=== PATIENT | male | born 1995 | race Caucasian/White ===

== ENCOUNTER 2020-10-13 22:06 | Emergency (ER) | payer BC, OTHER ==
[~2020-10-13] VITALS: Ht 175.3 cm; Wt 83.9 kg
[2020-10-13 22:46] LABS: ABSOLUTE EOSINOPHILS 0.1 thou/uL (0.0-0.7); ABSOLUTE LYMPHOCYTES 2.7 thou/uL (0.8-5.3); ABSOLUTE NEUTROPHILS 9.5 thou/uL (1.6-8.1); BASOPHILS 0.4 %; EOSINOPHILS 0.8 %; HEMATOCRIT 43.6 % (42.0-52.0); HEMOGLOBIN 15.1 gm/dL (14.0-18.0); LYMPHOCYTES 20.5 %; MCH 29.4 pg (26.0-34.0); MCHC 34.7 g/dL (28.0-37.0); MCV 84.9 fL (80.0-100.0); MONOCYTES 7.5 %; MPV 7.5 fl. (7.2-11.1); NUCLEATED RBCS 0 /100WBC; PLATELET COUNT* 338 thou/uL (150-400); POLYS 70.8 %; RBC 5.14 mil/uL (4.50-6.00); RDW-CV 13.1 % (10.5-14.5); WBC 13.4 thou/uL (4.0-11.0)
[2020-10-13 22:47] LABS: URINE BILIRUBIN NEGATIVE (Negative); URINE BLOOD NEGATIVE (Negative); URINE CLARITY CLEAR; URINE COLOR YELLOW; URINE GLUCOSE-RANDOM NEGATIVE (Negative); URINE KETONES TRACE (Negative); URINE LEUKOCYTES-REFLEX NEGATIVE (Negative); URINE NITRITE-REFLEX NEGATIVE (Negative); URINE PROTEIN TRACE (Negative); URINE SPECIFIC GRAVITY 1.025 (1.005-1.030)
[2020-10-13 22:50] LABS: CREATININE 1.2 mg/dL (0.6-1.3); POTASSIUM 3.2 mmol/L (3.5-5.1)
[2020-10-13 22:54] LABS: ALBUMIN 4.3 g/dL (3.4-5.0); AMP/METHAMP Negative (Negative); BARBITURATES Negative (Negative); BENZODIAZEPINES Negative (Negative); COCAINE Negative (Negative); METHADONE Negative (Negative); OPIATES Negative (Negative); PCP Negative (Negative); THC POSITIVE (Negative); TOTAL BILIRUBIN 1.2 mg/dL (<0.1-1.0); TOTAL PROTEIN 7.4 g/dL (6.4-8.2)
[2020-10-14] MEDS ORDERED: ZOFRAN ODT4 MG PO (01:10)
[2020-10-14 01:29] VITALS: BP 110/52
--- NOTE | 2020-10-14 10:08 | EKG ---
[place] [address] ELECTROCARDIOGRAM REPORT Name: HARSHAD VANCE Room: [facility]#: [id number] Admission: 10/13/20 Attend Phys: Discharge: 10/14/20 Date of : [birth year] Date of Service: 10/13/202233 Report #: [id number] THIS REPORT FOR: //name// [facility] ED Test Date: 2020-10-13 Test Time: 22:34:15 Pat Name: HARSHAD VANCE Department: Room: Gender: Hybrid Tester: [facility] : 1995 Requested By: Juliet Condon Order Number: [id number] MD: George Rhoades Measurements Intervals [place] Rate: 106 P: 60 [place]: 154 QRS: 45 QRSD: 81 T: -13 QT: 326 QTc: 433 Interpretive Statements Sinus tachycardia Borderline T wave abnormalities No previous ECG available for comparison Electronically Signed On 10-14-2020 10:08:43 [employer] by George Rhoades [email or web address] <ELECTRONICALLY SIGNED> By: George Rhoades MD, [facility] 10/14/20 1008 33 33 George Rhoades MD, FACC /EPI
== END 2020-10-14 01:31 | disposition home or self-care (01) ==
LOC: M.ERS 22:06
PROVIDERS: Personal Emergency Response Attendant
DX: R11.2 Nausea with vomiting, unspecified (principal)